=== PATIENT | male | born 1955 | race Asian ===

== ENCOUNTER 2020-05-30 08:25 | Day surgery (SDC) | payer OTHER ==
[2020-05-27 13:38] VITALS: BMI 21.6
[2020-05-30] MEDS ORDERED: MIDAZOLAM HCL 2 MG/2 ML SINGLE DOSE VIAL ONE (11:40)
[2020-05-30] MEDS ORDERED: PROPOFOL 20 ML ONE (12:00)
[2020-05-30] MEDS ORDERED: KETOROLAC TROMETHAMINE 30 MG/1 ML VIAL ONE (12:00)
--- NOTE | 2020-05-30 12:14 | OP ---
Operative Note - Note: Operative Date: 05/30/20 Pre-Operative Diagnosis: Right renal stone Operation: Right ESWL Findings: 6 mm lower pole Right renal stone Post-Operative Diagnosis: Same as Pre-op Anesthesia: Fractional Estimated Blood Loss (mls): 0 Operative Report Dictated: Yes
[2020-05-30 12:36] VITALS: TEMP 97.8
[2020-05-30 14:34] VITALS: BP 114/76; PULSE 52
--- NOTE | 2020-05-31 07:42 | OP ---
DATE OF OPERATION: 05/30/2020 PREOPERATIVE DIAGNOSIS: Right renal stone. POSTOPERATIVE DIAGNOSIS: Right renal stone. PROCEDURE: Right extracorporeal shockwave lithotripsy. ATTENDING: Rajesh Anna MD ANESTHESIA: Fractional. DESCRIPTION OF OPERATION: Patient was brought in the operating room and placed in the supine position on the operating room table. Ultrasonography and fluoroscopy were performed. A 6-mm right lower pole stone was identified. Anesthesia and preoperative antibiotics were then administered. Shockwave lithotripsy was then performed; 2500 impulses at 17 joules of power were administered to the stone with excellent fragmentation of the stone noted under fluoroscopic and ultrasonographic visualization. The disposition of the patient was to recovery room. RAJESH ANNA M.D. [id number]
== END 2020-05-30 14:30 | disposition home or self-care (01) ==
LOC: JASU-SURG 08:25
PROVIDERS: ATTEND Urology
PROC: 0TF3XZZ Fragmentation in Right Kidney Pelvis, External Approach (ICD-10-PCS; principal; 2020-05-30 10:00)
DX: N20.0 Calculus of kidney (principal); E11.9 Type 2 diabetes mellitus without complications
CPT/HCPCS: 82962